=== PATIENT | male | born 1950 | race Caucasian/White ===

== ENCOUNTER 2016-11-16 01:52 | Emergency (ER) | payer MEDICARE ==
[~2016-11-16] VITALS: Ht 177.8 cm; Wt 79.7 kg
[2016-11-16 01:59] VITALS: BP 135/103; PULSE 90; RESP 18; TEMP 99.2; O2SAT 96
[2016-11-16 02:11] VITALS: BP 143/82; PULSE 80; RESP 20; TEMP 98.2; O2SAT 96
[2016-11-16] MEDS ORDERED: ASPIRIN 81 MG CHEW TAB PO ONE (02:30)
[2016-11-16] MEDS ORDERED: SODIUM CHLORIDE 0.9% FLUSH 5 ML FLUSH IVF PRN (02:30)
[2016-11-16 02:58] LABS: AUTOMATED NEUTROPHIL # 3.4 TH/MM3 (1.8-7.7); BASOPHIL # 0.1 TH/MM3 (0-0.2); BASOPHIL % 1.1 % (0.0-2.0); EOSINOPHIL # 0.4 TH/MM3 (0-0.4); EOSINOPHIL % 4.6 % (0.0-4.0); HEMATOCRIT 48.5 % (39.0-51.0); HEMO FLAGS DIFF FINAL; LYMPH % 43.6 % (9.0-44.0); LYMPHOCYTE # 3.3 TH/MM3 (1.0-4.8); MEAN CELL VOLUME 92.5 FL (80.0-100.0); MEAN CORPUSCULAR HEMOGLOBIN 29.4 PG (27.0-34.0); MEAN CORPUSCULAR HGB CONC 31.8 % (32.0-36.0); MONO % 7.3 % (0.0-8.0); NEUT % 43.4 % (16.0-70.0); PLATELET COUNT 300 TH/MM3 (150-450); RED BLOOD COUNT 5.24 MIL/MM3 (4.50-5.90); RED CELL DISTRIBUTION WIDTH 13.9 % (11.6-17.2); WHITE BLOOD COUNT 7.8 TH/MM3 (4.0-11.0)
[2016-11-16 03:00] VITALS: BP_SYST 140; BP_SYST 142; BP_DIAS 85; BP_DIAS 89; PULSE 70; PULSE 71; RESP 20; O2SAT 95; O2SAT 96
[2016-11-16 03:04] LABS: CHLORIDE 107 MEQ/L (98-107); POTASSIUM 4.2 MEQ/L (3.5-5.1); SODIUM (NA) 143 MEQ/L (136-145)
[2016-11-16 03:07] LABS: ANION GAP 8 MEQ/L (5-15); BICARBONATE 28.2 MEQ/L (21.0-32.0)
[2016-11-16 03:08] LABS: BLOOD UREA NITROGEN 22 MG/DL (7-18)
[2016-11-16 03:09] LABS: APTT (PATIENT) 26.4 SEC (24.3-30.1); INTERNATIONAL NORMALIZED RATIO 0.9 RATIO; PROTHROMBIN TIME - PATIENT 10.3 SEC (9.8-11.6)
[2016-11-16 03:10] LABS: ALT (GPT) 67 U/L (12-78)
[2016-11-16 03:11] LABS: AST (GOT) 27 U/L (15-37); GLOMERULAR FILTRATION RATE 51 ML/MIN (>89)
[2016-11-16 03:12] LABS: TOTAL BILIRUBIN ADULT 0.3 MG/DL (0.2-1.0)
--- NOTE | 2016-11-16 03:12 | RADHPO ---
EXAM DATE/TIME: 11/16/2016 03:04 [place] COMPARISON: No previous studies available for comparison. INDICATIONS : Shortness of breath and right chest pain. MEDICAL HISTORY : None. SURGICAL HISTORY : None. ENCOUNTER: Initial ACUITY: 1 day PAIN SCORE: 7/10 LOCATION: Right chest FINDINGS: A single view of the chest demonstrates the lungs to be symmetrically aerated without evidence of mas s, infiltrate or effusion. The cardiomediastinal contours are unremarkable. Osseous structures are intact. CONCLUSION: 1. No acute cardiopulmonary disease. Fortunato Salinas MD on November 16, 2016 at 3:10 Board Certified Radiologist. This report was verified electronically.
[2016-11-16 03:13] LABS: ALKALINE PHOSPHATASE 82 U/L (45-117)
[2016-11-16 03:24] LABS: CREATINE KINASE 72 U/L (39-308)
--- NOTE | 2016-11-16 03:49 | PD ---
HPI Chief Complaint: Chest Pain Time Seen by Provider: 02:21 Travel History International Travel<30 days: No Contact w/Intl Traveler<30days: No Traveled to known affect area: No History of Present Illness HPI 66-year-old male presents to the emergency department by private transportation for complaint of one week of intermittent right-sided chest discomfort that occasionally is associated with a slight wheeze and discomfort to the left shoulder blade. Patient denies any chronic medical conditions. Patient denies personal history of hypertension, CAD, dyslipidemia, diabetes, tobaccoism, or family history premature onset heart disease. Patient denies any recent long distance travel, protracted bedrest/illness, or surgical procedure; no swelling or pain of the lower extremities. No personal history or family history of clotting disorder. The patient denies fever or chills. Patient has had no cough, no productive cough, no yellow green sputum production; also denies hemoptysis. No report of sweats or weight loss. Patient states discomfort is 1 -2/10 in intensity when present; currently 0/10. Patient states that he finally decided to come to the emergency room because he felt that there would be no one in the emergency room at three o'clock morning. Patient also denies any recent rash or skin sensitivity to the affected areas. Patient denies any abdominal pain. Patient is unable to identify exacerbating or alleviating factors. PFSH Past Medical History Narrative Medical Negative past medical history positive occasional alcohol use denies tobacco use no family history of heart disease nursing notes reviewed Medical History: Denies Significant Hx Tetanus Vaccination: Unknown Influenza Vaccination: No Past Surgical History Surgical History: No Previous Surgery Social History Alcohol Use: Yes (3 GLASSES A WEEK) Tobacco Use: No Substance Use: No Allergies-Medications (Allergen,Severity, Reaction): Coded Allergies: No Known Allergies (Unverified , 11/16/16) Reported Meds & Prescriptions Reported Meds & Active Scripts Active No Active Prescriptions or Reported Medications Review of Systems Except as stated in HPI: all other systems reviewed are Neg General / Constitutional: No: Fever, Chills HENT: No: Congestion Cardiovascular: Positive: Chest Pain or Discomfort (right sided chest wall) Respiratory: Positive: Wheezing (occasional), No: Cough, Shortness of Breath Gastrointestinal: No: Nausea, Vomiting, Abdominal Pain Genitourinary: No: Flank Pain Musculoskeletal: No: Myalgias, Arthralgias Skin: No Rash Neurologic: No: Weakness Psychiatric: No: Anxiety Hematologic/Lymphatic: No: Lymph Node Enlargement Physical Exam Narrative GENERAL: Well-developed well-nourished male in no acute distress no respiratory distress GCS 15 SKIN: Warm and dry. No rash no vesicles no pustules no petechia no purpura no skin sensitivity no erythema no induration no tenderness HEAD: Normocephalic. EYES: No scleral icterus. No injection or drainage. NECK: Supple, trachea midline. No JVD or lymphadenopathy. CARDIOVASCULAR: Regular rate and rhythm without murmurs, gallops, or rubs. Chest wall: No rash nontender to direct palpation no crepitus no point tenderness to palpation of the ribs ecchymosis no abrasion RESPIRATORY: Breath sounds equal bilaterally. No accessory muscle use. GASTROINTESTINAL: Abdomen soft, non-tender, nondistended. MUSCULOSKELETAL: No cyanosis, or edema. Bilateral dorsalis pedis pulses 2+ to palpation radial pulses 2+ to palpation BACK: Nontender without obvious deformity. No CVA tenderness. Data Data Last Documented VS Vital Signs Date Time Temp Pulse Resp B/P Pulse Ox O2 Delivery O2 Flow Rate FiO2 11/16/16 03:00 70 20 140/89 95 142/85 11/16/16 02:55 Nasal Cannula 2 11/16/16 02:11 98.2 Orders Electrocardiogram (11/16/16 02:21) Ckmb (Isoenzyme) Profile (11/16/16 02:21) Complete Blood Count With Diff (11/16/16 02:21) Comprehensive Metabolic Panel (11/16/16 02:21) Magnesium (Mg) (11/16/16 02:21) Prothrombin Time / Inr (Pt) (11/16/16 02:21) Act Partial Throm Time (Ptt) (11/16/16 02:21) Troponin I (11/16/16 02:21) Chest, Single Ap (11/16/16 02:21) Ecg Monitoring (11/16/16 02:21) Bilateral Bp Monitoring (11/16/16 02:21) Iv Access Insert/Monitor (11/16/16 02:21) Oximetry (11/16/16 02:21) Oxygen Administration (11/16/16 02:21) Aspirin Chew (Aspirin Chew) (11/16/16 02:30) Sodium Chloride 0.9% Flush (Ns Flush) (11/16/16 02:30) D-Dimer (11/16/16 03:39) Sodium Chlorid 0.9% 500 Ml Inj (Ns 500 M (11/16/16 04:15) Labs Laboratory Tests Test 11/16/16 02:45 White Blood Count 7.8 TH/MM3 Red Blood Count 5.24 MIL/MM3 Hemoglobin 15.4 GM/DL Hematocrit 48.5 % Mean Corpuscular Volume 92.5 FL Mean Corpuscular Hemoglobin 29.4 PG Mean Corpuscular Hemoglobin 31.8 % Concent Red Cell Distribution Width 13.9 % Platelet Count 300 TH/MM3 Mean Platelet Volume 8.0 FL Neutrophils (%) (Auto) 43.4 % Lymphocytes (%) (Auto) 43.6 % Monocytes (%) (Auto) 7.3 % Eosinophils (%) (Auto) 4.6 % Basophils (%) (Auto) 1.1 % Neutrophils # (Auto) 3.4 TH/MM3 Lymphocytes # (Auto) 3.3 TH/MM3 Monocytes # (Auto) 0.6 TH/MM3 Eosinophils # (Auto) 0.4 TH/MM3 Basophils # (Auto) 0.1 TH/MM3 CBC Comment DIFF FINAL Differential Comment Prothrombin Time 10.3 SEC Prothromb Time International 0.9 RATIO Ratio Activated Partial 26.4 SEC Thromboplast Time D-Dimer Quantitative (PE/DVT) 0.23 MG/L FEU Sodium Level 143 MEQ/L Potassium Level 4.2 MEQ/L Chloride Level 107 MEQ/L Carbon Dioxide Level 28.2 MEQ/L Anion Gap 8 MEQ/L Blood Urea Nitrogen 22 MG/DL Creatinine 1.40 MG/DL Estimat Glomerular Filtration 51 ML/MIN Rate Random Glucose 110 MG/DL Calcium Level 8.3 MG/DL Magnesium Level 2.0 MG/DL Total Bilirubin 0.3 MG/DL Aspartate Amino Transf 27 U/L (AST/SGOT) Alanine Aminotransferase 67 U/L (ALT/SGPT) Alkaline Phosphatase 82 U/L Total Creatine Kinase 72 U/L Troponin I LESS THAN 0.02 NG/ML Total Protein 7.3 GM/DL Albumin 3.6 GM/DL MDM Medical Decision Making Medical Screen Exam Complete: Yes Emergency Medical Condition: Yes Medical Record Reviewed: Yes Interpretation(s) EKG normal sinus rhythm rate [address] elevation or injury pattern change noted no ectopy cxr: nad cbc: grossly wnl metabolic panel: wnl except for renal insufficiency ck: 72, not elevated trop: <0.02, not elevated coags: grossly wnl;d-dimer: not elevated @ 0.23 Differential Diagnosis Chest wall pain, musculoskeletal pain, shingles, pneumonia, PE, ACS, myocardial infarction, viral syndrome, biliary colic, pancreatitis Narrative Course Patient placed on youth nutritional monitor IV access obtained specimens collected and sent for resulting patient administered aspirin no pain at this time therefore no nitroglycerin glycerin administered EKG performed which is remarkable for no acute injury pattern changed no ST elevation or ectopy; chest x-ray reveals no acute process or liver failure pneumothorax Lab values found to be grossly within normal range except for renal insufficiency BUN and creatinine of 22/1.4 At 3:49 AM patient remains asymptomatic d-dimer pending @ 4:15 pain remains 0/10; resting comfortably; waiting on pending lab; informed of elevated bun/cr --reports may be dehydrated; iv fluid bolus administered At 4:30 AM patient continues to fill while d-dimer is not elevated patient is stable for outpatient management has received IV fluid bolus for renal insufficiency/rehydration Procedures EKG Prior to Arrival: No Diagnosis Primary Impression: Atypical chest pain Additional Impression: Renal insufficiency Referrals: Family Practice Physician 2 days Patient Instructions: General Instructions Additional Instructions: Increase fluid hydration Follow-up with primary care physician call office on Thursday Return to the emergency department for any concerns or change condition May use [id number] acetaminophen/Tylenol as needed for minor discomfort or for fever 100.4F or greater May use ibuprofen/Advil/Motrin per package instructions as needed for pain associated with inflammation or for fever 100.4F or greater Med/Other Pt SpecificInfo: No Meds Exist/No RX given Scripts No Active Prescriptions or Reported Meds Disposition: DISCHARGE HOME Condition: Stable Kathleen Radford MD Nov 16, 2016 03:49
[2016-11-16 04:00] VITALS: BP 135/68; PULSE 72; RESP 20; O2SAT 99
[2016-11-16] MEDS ORDERED: SODIUM CHLORID 0.9% 500 ML INJ 500 ML IV ONE (04:15)
[2016-11-16 05:19] VITALS: BP 122/67
--- NOTE | 2016-11-17 19:49 | EKG ---
Date Performed: 11/16/2016 Time Performed: 02:04:40 PTAGE: 66 years EKG: Sinus rhythm Normal ECG NO PREVIOUS TRACING DOCTOR: Elijah Deras Interpretating Date/Time 11/17/2016 19:40:56
== END 2016-11-16 05:24 | disposition home or self-care (01) ==
LOC: PHED 01:52
DX: R07.89 Other chest pain (principal); N28.9 Disorder of kidney and ureter, unspecified
CPT/HCPCS: 71010; 80053; 82550; 83735; 84484; 85025; 85379; 85610; 85730; 93005; 99285; J7040